=== PATIENT | female | born 1990 | race Caucasian/White ===

== ENCOUNTER 2016-09-24 08:30 | Emergency (ER) | payer BC ==
[~2016-09-24] VITALS: Ht 154.9 cm; Wt 72.5 kg
[~2016-09-24 08:30] MED LIST: ALBU8.5H3 INH; CIPR500T4 PO; NAPR-260 PO; PRED50TA PO
[2016-09-24 08:37] VITALS: Ht 154.9 cm; Wt 72.5 kg
[2016-09-24] MEDS ORDERED: SOD CHLORIDE 0.9% 1,000 ML IV STA (08:50)
[2016-09-24] MEDS ORDERED: KETOROLAC 30 MG INJ IV STA (08:50)
[2016-09-24 09:32] LABS: ADD SCAN DIFF NO
[2016-09-24 09:37] LABS: BASOPHIL # 0.1 10^3/ul (0.0-0.1); BASOPHILS % 0.5 % (0.0-2.0); EOSINOPHILS # 0.1 10^3/ul (0.0-0.5); EOSINOPHILS % 1.5 % (0.0-7.0); HEMATOCRIT 46.1 % (37.0-47.0); HEMOGLOBIN 15.7 g/dl (12.0-16.0); LYMPHOCYTES % 31.4 % (15.0-51.0); MEAN CORPUSCULAR HEMOGLOBIN 30.7 pg (29.0-33.0); MEAN CORPUSCULAR HGB CONC 34.1 g/dl (32.0-37.0); MEAN CORPUSCULAR VOLUME 90.2 fl (82.0-101.0); MEAN PLATELET VOLUME 10.8 fl (7.4-10.4); MONOCYTE # 0.6 10^3/ul (0.3-0.9); MONOCYTES % 6.4 % (0.0-11.0); NEUTROPHIL # 5.6 10^3/ul (1.6-7.5); NEUTROPHILS % 59.8 % (39.0-77.0); PLATELET COUNT 300 10^3/UL (140-415); RED BLOOD COUNT 5.11 10^6/ul (4.20-5.40); RED CELL DISTRIBUTION WIDTH 12.1 % (11.5-14.5); WHITE BLOOD COUNT 9.4 10^3/ul (4.8-10.8)
[2016-09-24 09:53] LABS: ALBUMIN 5.1 g/dl (3.3-4.9); ALBUMIN/GLOBULIN RATIO 1.82; BILIRUBIN,INDIRECT 1.3 mg/dl (0-1.1); BILIRUBIN,TOTAL 1.3 mg/dl (0.2-1.3); CALCIUM 9.6 mg/dl (8.4-10.2); CREATININE 0.8 mg/dl (0.44-1.00); POTASSIUM 3.9 mmol/L (3.5-5.1); TOTAL PROTEIN 7.9 g/dl (6.1-8.1)
[2016-09-24] MEDS ORDERED: morphine 4 MG/ML VIAL IV STA (10:05)
[2016-09-24] MEDS ORDERED: ONDANSETRON 4 MG INJ IV STA (10:05)
--- NOTE | 2016-09-24 10:09 | RADRPT ---
PROCEDURE: US Pelvis CLINICAL INDICATION: pelvic pain TECHNIQUE: Multiple sonographic images of the pelvis were obtained utilizing a transabdominal and endovaginal technique. The images were reviewed on a PACS workstation. COMPARISON: Pelvic ultrasound from 11/30/2015 LMP: 09/06/2016 FINDINGS: The uterus is retroverted and measures 6.3 x 3.5 x 4.6 cm. The endometrial echo complex measures 9 mm in thickness. No discrete lesion is seen. The right ovary measures 2.9 x 2.1 x 2.3 cm. The left ovary measures 3.4 x 1.9 x 2.5 cm. There is no rmal vascular flow in both ovaries. No significant ovarian lesions are seen. This is mild pelvic free fluid. IMPRESSION: Unremarkable pelvic ultrasound, as above. RPTAT: EE Physician Irvin Date Time Electronically viewed and signed by Physician Irvin on 09/24/2016 10:09 /
[2016-09-24 10:21] LABS: ADD UMIC YES; UR ASCORBIC ACID NEGATIVE (NEGATIVE); UR BACTERIA FEW /HPF (NONE SEEN); UR BILIRUBIN (Dip) NEGATIVE (NEGATIVE); UR BLOOD (Dip) 3+ mg/dL (NEGATIVE); UR CLARITY CLOUDY (CLEAR); UR COLOR YELLOW (YELLOW); UR GLUCOSE (Dip) NEGATIVE (NEGATIVE); UR KETONES (Dip) NEGATIVE (NEGATIVE); UR LEUKOCYTE ESTERASE (Dip) 1+ Leu/ul (NEGATIVE); UR MUCUS FEW /HPF (NONE SEEN); UR NITRITE (Dip) NEGATIVE (NEGATIVE); UR RBC > 182 /HPF (0-5); UR TOTAL PROTEIN (Dip) 1+ mg/dl (NEGATIVE); UR UROBILINOGEN (Dip) NEGATIVE (NEGATIVE)
--- NOTE | 2016-09-24 11:14 | RADRPT ---
PROCEDURE: CT Abdomen and pelvis without contrast. CLINICAL INDICATION: Low pelvic pain. History of kidney stones TECHNIQUE: CT scan of the abdomen and pelvis without contrast was performed on a multidetector hig h-resolution CT scan. . Coronal and sagittal reformatted images were obtained from the axial [facility] e images. Standard CT scan of the abdomen pelvis without contrast protocols were performed. The total exam CTDI equals 16.46 mGy and the total exam DLP equals 1007.92 mGy-cm. One or more of the following dose reduction techniques were used: - Automated exposure control. - Adjustment of the mA and/or kV according to patient size. Use of iterative reconstruction technique. COMPARISON: CT abdomen pelvis without contrast 11/30/2015 FINDINGS: There is a 3 mm distal right ureteral calcified calculus just proximal to the right ureteral vesicle junction resulting in moderate right hydroureter and hydronephrosis. No evidence of left hydroneph rosis or hydroureter. Again noted are multiple nonobstructing tiny left renal calcified calculi and a tiny non-obstructing inferior right renal calcified calculus. No evidence of intra renal masses bilaterally. The urinary bladder is partially contracted. Urinary bladder wall thickening is likel y related to the contracted state this cystitis cannot be excluded. There is trace fluid in the cul-de-sac. The uterus is anteverted but otherwise unremarkable. No ad nexal masses. No other evidence of abdominal free fluid. Negative for abdominal free air, abscesse s or lymphadenopathy. The gallbladder is unremarkable without biliary ductal dilation. The liver spleen pancreas and adre nal glands are unremarkable. The stomach, small bowel and large bowel are unremarkable. The appendix is unremarkable. The aorta is unremarkable. Lung bases are unremarkable. The osseous structures are unremarkable. Lower thoracic abdominal pelvic short are unremarkable. IMPRESSION: 1. 3 mm distal right ureteral calcified calculus resulting in moderate right hydroureter and hydron ephrosis. 2. Additional bilateral nonobstructing renal calcified calculi as described above. No left obstruc tive uropathy. 3. Trace fluid in the cul-de-sac. Negative for intra-abdominal free air or abscesses. 4. Urinary bladder wall thickening likely related to lack of optimal distension cystitis cannot be excluded. RPTAT:AAJJ Denice Hahn Physician Date Time Electronically viewed and signed by Denice Hahn Physician on 09/24/2016 11:14 BM/
[2016-09-24] MEDS ORDERED: ONDA-43 PO (11:29)
[2016-09-24] MEDS ORDERED: IBUP-1542 PO (11:29)
[2016-09-24] MEDS ORDERED: HYDR-906 PO (11:30)
[2016-09-24] MEDS ORDERED: NITR-58 PO (11:36)
--- NOTE | 2016-09-24 14:29 | ERD ---
ER Documentation Chief Complaint Date/Time DATE: 09/24/16 TIME: 14:24 Chief Complaint has pelvic pain started with pressure now is more uncomfortable pain HPI This is a 26-year-old female presents to the ER with right-sided pelvic pain. Patient states that pelvic pain radiates to the right side of her groin and has gotten more severe over the last few days. Patient does admit to some urinary frequency and dysuria however denies hematuria. She denies nausea vomiting or diarrhea. She has a history of kidney stones and feels that this is the same problem. She denies any vaginal discharge. ROS 12 point review of systems was done, all negative except per HPI. Medications Home Meds Active Scripts Nitrofurantoin Monohyd Macrocr* (Macrobid*) 100 Mg Capsr, 100 MG PO BID for 7 Days, CAP Prov:CHRISTI BOWSER 09/24/16 Hydrocodone/Acetaminophen ([place] 5-325 Tablet) 1 Each Tablet, 1 TAB PO Q6H Y for PAIN, #15 TAB Prov:CHRISTI BOWSER 09/24/16 Ondansetron Hcl* (Zofran*) 4 Mg Tab, 4 MG PO Q4H Y for NAUSEA AND OR VOMITING for 5 Days, TAB Prov:CHRISTI BOWSER 09/24/16 Ibuprofen* (Motrin*) 600 Mg Tab, 600 MG PO Q6, #30 TAB Prov:CHRISTI BOWSER 09/24/16 Naproxen* (Naprosyn*) 500 Mg Tablet, 500 MG PO BID Y for PAIN AND/OR INFLAMMATION, #30 TAB Prov:DESMOND RODRIGEZ PA-C 11/30/15 Ciprofloxacin Hcl* (Ciprofloxacin Hcl*) 500 Mg Tablet, 500 MG PO BID for 10 Days , TAB Prov:DESMOND RODRIGEZ PA-C 11/30/15 Albuterol Sulfate* (Proair HFA*) 8.5 Gm Hfa.aer.ad, 2 PUFF INH Q4, #1 INHALER Prov:LIO JUAREZ PA-C 11/05/15 Prednisone* (Prednisone*) 50 Mg Tablet, 50 MG PO DAILY, #5 TAB Prov:LIO JUAREZ PA-C 11/05/15 Allergies Allergies: Coded Allergies: No Known Allergy (Unverified , 8/26/16) PMhx/Soc History of Surgery: No Anesthesia Reaction: No Hx Neurological Disorder: No Hx Respiratory Disorders: No Hx Cardiac Disorders: No Hx Psychiatric Problems: No Hx Miscellaneous Medical Probl: No Hx Alcohol Use: No Hx Substance Use: No Hx Tobacco Use: No Physical Exam Vitals Vital Signs Date Time Temp Pulse Resp B/P Pulse Ox O2 Delivery O2 Flow Rate FiO2 09/24/16 08:37 98.4 89 18 131/85 97 Physical Exam GENERAL: The patient is well developed and appropriate for usual state of health , in no apparent distress. HEENT: Atraumatic. CHEST: Clear to auscultation bilaterally. There are no rales, wheezes or rhonchi. HEART: Regular rate and rhythm. No murmurs, clicks, rubs or gallops. ABDOMEN: Soft, nontender and nondistended. Good bowel sounds. No rebound or guarding. No gross peritonitis. No gross organomegaly or masses. No Sy sign or McBurney point tenderness. BACK: No midline or flank tenderness. NEURO: Alert and oriented SKIN: The skin is warm and dry. Result Diagram: 09/24/1691709/24/1618 Results 24 hrs Laboratory Tests Test 09/24/16 09:00 09/24/16 09:18 Urine Color YELLOW Urine Clarity CLOUDY Urine pH 9.0 Urine Specific [place] 1.020 Urine Ketones NEGATIVEmg/dL Urine Nitrite NEGATIVEmg/dL Urine Bilirubin NEGATIVEmg/dL Urine Urobilinogen NEGATIVEmg/dL Urine Leukocyte Esterase 1+Katie/ul Urine Microscopic RBC > 182/HPF Urine Microscopic WBC 36/HPF Urine Bacteria FEW/HPF Urine Mucus FEW/HPF Urine Hemoglobin 3+mg/dL Urine Glucose NEGATIVEmg/dL Urine Total Protein 1+mg/dl White Blood Count 9.410^3/ul Red Blood Count 5.1110^6/ul Hemoglobin 15.7g/dl Hematocrit 46.1% Mean Corpuscular Volume 90.2fl Mean Corpuscular Hemoglobin 30.7pg Mean Corpuscular Hemoglobin Concent 34.1g/dl Red Cell Distribution Width 12.1% Platelet Count 26722^3/UL Mean Platelet Volume 10.8fl Neutrophils % 59.8% Lymphocytes % 31.4% Monocytes % 6.4% Eosinophils % 1.5% Basophils % 0.5% Nucleated Red Blood Cells % 0.0/100WBC Neutrophils # 5.610^3/ul Lymphocytes # 3.010^3/ul Monocytes # 0.610^3/ul Eosinophils # 0.110^3/ul Basophils # 0.110^3/ul Nucleated Red Blood Cells # 0.010^3/ul Sodium Level 142mmol/L Potassium Level 3.9mmol/L Chloride Level 104mmol/L Carbon Dioxide Level 26mmol/L Anion Gap 16 Blood Urea Nitrogen 8mg/dl Creatinine 0.80mg/dl Glucose Level 94mg/dl Calcium Level 9.6mg/dl Total Bilirubin 1.3mg/dl Direct Bilirubin 0.00mg/dl Indirect Bilirubin 1.3mg/dl Aspartate Amino Transf (AST/SGOT) 34IU/L Alanine Aminotransferase (ALT/SGPT) 47IU/L Alkaline Phosphatase 78IU/L Total Protein 7.9g/dl Albumin 5.1g/dl Globulin 2.80g/dl Albumin/Globulin Ratio 1.82 Lipase 65U/L Current Medications Medications (Trade) Dose Ordered Sig/Riddhi Route PRN Reason Start Time Stop Time Status Last Admin Dose Admin Sodium Chloride (NS) 1,000 ml @ 1,000 mls/hr Q1H STAT IV 09/24/16 08:50 09/24/16 09:49 DC 09/24/16 09:17 Ketorolac Tromethamine (Toradol) 30 mg ONCE STAT IV 09/24/16 08:50 09/24/16 08:52 DC 09/24/16 09:17 Morphine Sulfate (morphine) 4 mg ONCE STAT IV 09/24/16 10:05 09/24/16 10:06 DC 09/24/16 10:16 Ondansetron HCl (Zofran Inj) 4 mg ONCE STAT IV 09/24/16 10:05 09/24/16 10:06 DC 09/24/16 10:16 Procedures/MDM Labs were reviewed- no evidence of leukocytosis, anemia, or electrolyte abnormalities. Differential diagnosis includes but is not limited to appendicitis, hernia, UTI , constipation, ectopic , ovarian torsion, PID, Mittelschmerz, fibroid. , nephrolithiasis, septic stone, obstructive stone. This is a 26-year-old female presents to the ER with right-sided pelvic pain, patient does have a kidney stone. Suspicion for ovarian torsion is low. Patient afebrile and well- appearing. Stone is responding irritable will likely pass. Patient will be sent home with kesha Blair Norco, for the UTI on the ER. Patient is stable for outpatient neurology follow-up with her primary care doctor within 1-2 days return to ER sooner symptoms worsen. My medical decision making was shared with the patient she understands and agrees with plan. Departure Diagnosis: Primary Impression: Kidney stone Condition: Stable Patient Instructions: Kidney Stone W/ Colic Additional Instructions: Call your primary care doctor TOMORROW for an appointment during the next 1-2 days.See the doctor sooner or return here if your condition worsens before your appointment time. CHRISTI BOWSER Sep 24, 2016 14:29
== END 2016-09-24 11:41 | disposition home or self-care (01) ==
LOC: FTE 08:30
DX: N20.0 Calculus of kidney (principal)
CPT/HCPCS: 36415; 74176; 76830; 76856; 80053; 81001; 83690; 85025; 96374; 96375; 99285; J1885; J2270; J2405; J7030

== ENCOUNTER 2016-10-17 10:26 | Emergency (ER) | payer BC ==
[~2016-10-17] VITALS: Ht 154.9 cm; Wt 72.5 kg
[~2016-10-17 10:26] MED LIST changes: +HYDR-906 PO; +IBUP-1542 PO; +NITR-58 PO; +ONDA-43 PO
[2016-10-17 10:33] VITALS: Ht 154.9 cm; Wt 72.5 kg
[2016-10-17] MEDS ORDERED: SOD CHLORIDE 0.9% 1,000 ML IV STA (10:51)
[2016-10-17] MEDS ORDERED: KETOROLAC 30 MG INJ IV STA (10:51)
[2016-10-17] MEDS ORDERED: ONDANSETRON 4 MG INJ IV STA (10:51)
--- NOTE | 2016-10-17 11:06 | ERD ---
ER Documentation Chief Complaint Date/Time DATE: 10/17/16 TIME: 11:04 Chief Complaint r.side flank pain x 5 days HX of kidney stones HPI 26-year-old female with history of kidney stones comes in with right-sided flank pain for the past 5 days. She states that her pain went away from the previous kidney stones that she presented with on September 25 states that she passed small stones in the urine. She has recurring kidney stones, the last time she had it was the previous year as well. It is sharp, radiating to the right lower quadrant, moderate to severe. She states that she tried taking [place] that was prescribed previously and that seemed to help her. She has not had any fevers or chills or vomiting. ROS All systems reviewed and are negative except as per history of present illness. Medications Home Meds Active Scripts Naproxen* (Naprosyn*) 500 Mg Tablet, 500 MG PO BID Y for PAIN AND/OR INFLAMMATION, #30 TAB Prov:SHREE CHANG PA-C 10/17/16 Tamsulosin Hcl* (Flomax*) 0.4 Mg Cap.er.24h, 0.4 MG PO BID, #30 CAP Prov:SHREE CHANG PA-C 10/17/16 Ciprofloxacin Hcl* (Ciprofloxacin Hcl*) 500 Mg Tablet, 500 MG PO BID for 14 Days , TAB Prov:SHREE CHANG PA-C 10/17/16 Nitrofurantoin Monohyd Macrocr* (Macrobid*) 100 Mg Capsr, 100 MG PO BID for 7 Days, CAP Prov:CHRISTI BOWSER 09/24/16 Hydrocodone/Acetaminophen ([place] 5-325 Tablet) 1 Each Tablet, 1 TAB PO Q6H Y for PAIN, #15 TAB Prov:CHRISTI BOWSER 09/24/16 Ondansetron Hcl* (Zofran*) 4 Mg Tab, 4 MG PO Q4H Y for NAUSEA AND OR VOMITING for 5 Days, TAB Prov:CHRISTI BOWSER 09/24/16 Ibuprofen* (Motrin*) 600 Mg Tab, 600 MG PO Q6, #30 TAB Prov:CHRISTI BOWSER 09/24/16 Naproxen* (Naprosyn*) 500 Mg Tablet, 500 MG PO BID Y for PAIN AND/OR INFLAMMATION, #30 TAB Prov:DESMOND RODRIGEZ PA-C 11/30/15 Ciprofloxacin Hcl* (Ciprofloxacin Hcl*) 500 Mg Tablet, 500 MG PO BID for 10 Days , TAB Prov:DESMOND RODRIGEZTanmay HERRERA 11/30/15 Albuterol Sulfate* (Proair HFA*) 8.5 Gm Hfa.aer.ad, 2 PUFF INH Q4, #1 INHALER Prov:LIO JUAREZ SHARON 11/05/15 Prednisone* (Prednisone*) 50 Mg Tablet, 50 MG PO DAILY, #5 TAB Prov:LIO JUAREZ SHARON 11/05/15 Allergies Allergies: Coded Allergies: No Known Allergy (Unverified , 10/17/16) PMhx/Soc History of Surgery: No Anesthesia Reaction: No Hx Neurological Disorder: No Hx Respiratory Disorders: No Hx Cardiac Disorders: No Hx Psychiatric Problems: No Hx Miscellaneous Medical Probl: Yes (Kidney stones) Hx Alcohol Use: No Hx Substance Use: No Hx Tobacco Use: No Smoking Status: Never smoker Physical Exam Vitals Vital Signs Date Time Temp Pulse Resp B/P Pulse Ox O2 Delivery O2 Flow Rate FiO2 10/17/16 10:33 98.0 85 20 121/81 100 Physical Exam General: Well-developed, well-nourished. The patient appears in no acute distress. HEENT: Head is normocephalic, atraumatic. No scleral icterus. Neck: Supple. Nontender. Lungs: Clear to auscultation. Normal air movement. Heart: Regular rate and rhythm. S1 and S2 are normal. No murmurs, gallops, or rubs. Abdomen: Soft, nontender, nondistended. Bowel sounds are normoactive. Extremities: No clubbing or cyanosis. Normal pulses. Moving extremities x 4. No weakness. Neurologic: Alert and oriented 3. No focal deficits. Skin: Normal turgor. No rash or lesions. Result Diagram: 10/17/16 1106 10/17/16 1106 Results 24 hrs Laboratory Tests Test 10/17/16 11:06 White Blood Count 6.510^3/ul Red Blood Count 4.7910^6/ul Hemoglobin 14.8g/dl Hematocrit 43.0% Mean Corpuscular Volume 89.8fl Mean Corpuscular Hemoglobin 30.9pg Mean Corpuscular Hemoglobin Concent 34.4g/dl Red Cell Distribution Width 12.0% Platelet Count 38722^3/UL Mean Platelet Volume 10.9fl Neutrophils % 48.3% Lymphocytes % 40.4% Monocytes % 8.1% Eosinophils % 2.4% Basophils % 0.6% Nucleated Red Blood Cells % 0.0/100WBC Neutrophils # 3.210^3/ul Lymphocytes # 2.610^3/ul Monocytes # 0.510^3/ul Eosinophils # 0.210^3/ul Basophils # 0.010^3/ul Nucleated Red Blood Cells # 0.010^3/ul Urine Color YELLOW Urine Clarity SLIGHTLY CLOUDY Urine pH 9.0 Urine Specific [place] 1.016 Urine Ketones NEGATIVEmg/dL Urine Nitrite NEGATIVEmg/dL Urine Bilirubin NEGATIVEmg/dL Urine Urobilinogen NEGATIVEmg/dL Urine Leukocyte Esterase 1+Katie/ul Urine Microscopic RBC 4/HPF Urine Microscopic WBC 8/HPF Urine Squamous Epithelial Cells FEW/HPF Urine Bacteria FEW/HPF Urine Hemoglobin NEGATIVEmg/dL Urine Glucose NEGATIVEmg/dL Urine Total Protein 1+mg/dl Sodium Level 139mmol/L Potassium Level 3.7mmol/L Chloride Level 104mmol/L Carbon Dioxide Level 26mmol/L Anion Gap 13 Blood Urea Nitrogen 9mg/dl Creatinine 0.80mg/dl Glucose Level 87mg/dl Calcium Level 9.8mg/dl Total Bilirubin 2.0mg/dl Direct Bilirubin 0.00mg/dl Indirect Bilirubin 2.0mg/dl Aspartate Amino Transf (AST/SGOT) 31IU/L Alanine Aminotransferase (ALT/SGPT) 39IU/L Alkaline Phosphatase 71IU/L Total Protein 8.1g/dl Albumin 5.3g/dl Globulin 2.80g/dl Albumin/Globulin Ratio 1.89 Lipase 75U/L Current Medications Medications (Trade) Dose Ordered Sig/Riddhi Route PRN Reason Start Time Stop Time Status Last Admin Dose Admin Sodium Chloride (NS) 1,000 ml @ 1,000 mls/hr Q1H STAT IV 10/17/16 10:51 10/17/16 11:50 DC 10/17/16 11:13 Ondansetron HCl (Zofran Inj) 4 mg ONCE STAT IV 10/17/16 10:51 10/17/16 10:52 DC 10/17/16 11:13 Ketorolac Tromethamine (Toradol) 30 mg ONCE STAT IV 10/17/16 10:51 10/17/16 10:53 DC 10/17/16 11:13 Tamsulosin HCl (Flomax) 0.4 mg ONCE ONCE PO 10/17/16 11:30 10/17/16 11:31 DC 10/17/16 11:30 PROCEDURE: CT abdomen and pelvis without contrast and with 3-D reconstructions CLINICAL INDICATION: Right flank, rlq pain w/ a history of stones TECHNIQUE: CT scan of the abdomen and pelvis without contrast was performed on a multislice CT scanner. 3-D sagittal and coronal reformatted images were obtained from the axial source images. DLP 632.84 mGycm CTDIvol 11.12 mGy One or more of the following dose reduction techniques were used: - Automated exposure control. - Adjustment of the mA and/or kV according to patient size. - Use of iterative reconstruction technique. COMPARISON: CT abdomen/pelvis from 09/24/2016 FINDINGS: The visualized lung bases are unremarkable. The liver is homogenous in attenuation. There are no focal liver lesions. There is no intrahepatic or extrahepatic biliary ductal dilatation. The gallbladder is within normal limits. The spleen, pancreas, and adrenal glands are within normal limits. A 3 mm calculus is identified at the right ureterovesicular junction which has minimally progressed distally since the prior CT study from 09/24/2016 where it was in the most distal aspect of the right ureter. There is stable mild right hydronephrosis and hydroureter. A punctate nonobstructive right lower pole renal calculus is again identified. At least 2 punctate nonobstructive left renal calculi are identified. There is no left hydronephrosis. There are no dilated or thickened loops of bowel. The appendix is within normal limits. The aorta is within normal limits. There are no enlarged mesenteric, periaortic , or retroperitoneal lymph nodes. The bladder is within normal limits. There is no free air. There is no free fluid. There are no enlarged intrapelvic or inguinal lymph nodes. Osseous and soft tissue structures are unremarkable. IMPRESSION: 3 mm right ureterovesicular junction stone which has minimally progressed distally since the prior CT study from 09/24/2016. There is stable mild right hydronephrosis and hydroureter. Consider nephrostomy tube placement for decompression. Punctate nonobstructive bilateral renal calculi are identified. There is no left hydronephrosis. Normal appendix. RPTAT: EE Physician Irvin Date Time Electronically viewed and signed by Alfred Cha Physician on 10/17/2016 12:00 Procedures/MDM ED course: Patient had an IV line established, she was given Toradol 30 mg, fluid bolus of normal saline 1 L. Blood and urine were obtained. 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 She states that she is not able to urinate, she believes it could be a new stone, therefore another CT will be ordered at this time. Medical decision making: This is 26-year-old female presents with right-sided flank pain with a history of recurrent kidney stones, patient has a descending right VJ stone, with stable hydronephrosis. Labs are normal, normal renal function, no white count, no fever associated. She has 8 white blood cells in the urine analysis was as venous epithelial cells is likely due to a dirty catch with patient will be treated given her presentation of kidney stone with Cipro. This was discussed with my attending physician who agrees with workup, disposition that patient may follow-up outpatient. She has an appointment with her primary care doctor on Thursday which is 3 days from now, I have asked her to speak with them for a referral to see a urologist given her recurrent kidney stones. Departure Diagnosis: Primary Impression: Flank pain Condition: SHREE Wood PA-C Oct 17, 2016 11:06
[2016-10-17 11:18] LABS: ADD SCAN DIFF NO
[2016-10-17 11:25] LABS: BASOPHILS % 0.6 % (0.0-2.0); EOSINOPHILS # 0.2 10^3/ul (0.0-0.5); EOSINOPHILS % 2.4 % (0.0-7.0); HEMOGLOBIN 14.8 g/dl (12.0-16.0); LYMPHOCYTES # 2.6 10^3/ul (0.8-2.9); LYMPHOCYTES % 40.4 % (15.0-51.0); MEAN CORPUSCULAR HEMOGLOBIN 30.9 pg (29.0-33.0); MEAN CORPUSCULAR HGB CONC 34.4 g/dl (32.0-37.0); MEAN CORPUSCULAR VOLUME 89.8 fl (82.0-101.0); MEAN PLATELET VOLUME 10.9 fl (7.4-10.4); MONOCYTE # 0.5 10^3/ul (0.3-0.9); MONOCYTES % 8.1 % (0.0-11.0); NEUTROPHIL # 3.2 10^3/ul (1.6-7.5); NEUTROPHILS % 48.3 % (39.0-77.0); PLATELET COUNT 305 10^3/UL (140-415); RED BLOOD COUNT 4.79 10^6/ul (4.20-5.40); WHITE BLOOD COUNT 6.5 10^3/ul (4.8-10.8)
[2016-10-17] MEDS ORDERED: TAMSULOSIN (SR) 0.4 MG CAP PO ONE (11:30)
[2016-10-17 11:42] LABS: ALBUMIN 5.3 g/dl (3.3-4.9); ALBUMIN/GLOBULIN RATIO 1.89; CALCIUM 9.8 mg/dl (8.4-10.2); CREATININE 0.8 mg/dl (0.44-1.00); POTASSIUM 3.7 mmol/L (3.5-5.1); TOTAL PROTEIN 8.1 g/dl (6.1-8.1)
[2016-10-17 11:44] LABS: ADD UMIC YES; UR ASCORBIC ACID NEGATIVE (NEGATIVE); UR BACTERIA FEW /HPF (NONE SEEN); UR BILIRUBIN (Dip) NEGATIVE (NEGATIVE); UR BLOOD (Dip) NEGATIVE (NEGATIVE); UR CLARITY SLIGHTLY CLOUDY (CLEAR); UR COLOR YELLOW (YELLOW); UR GLUCOSE (Dip) NEGATIVE (NEGATIVE); UR KETONES (Dip) NEGATIVE (NEGATIVE); UR LEUKOCYTE ESTERASE (Dip) 1+ Leu/ul (NEGATIVE); UR NITRITE (Dip) NEGATIVE (NEGATIVE); UR RBC 4 /HPF (0-5); UR SPECIFIC GRAVITY (Dip) 1.016 (1.003-1.030); UR SQUAMOUS EPITHELIAL CELL FEW /HPF (FEW); UR TOTAL PROTEIN (Dip) 1+ mg/dl (NEGATIVE); UR UROBILINOGEN (Dip) NEGATIVE (NEGATIVE)
--- NOTE | 2016-10-17 12:00 | RADRPT ---
PROCEDURE: CT abdomen and pelvis without contrast and with 3-D reconstructions CLINICAL INDICATION: Right flank, rlq pain w/ a history of stones TECHNIQUE: CT scan of the abdomen and pelvis without contrast was performed on a multislice CT [facility]. 3-D sagittal and coronal reformatted images were obtained from the axial source images. DLP 632.84 mGycm CTDIvol 11.12 mGy One or more of the following dose reduction techniques were used: - Automated exposure control. - Adjustment of the mA and/or kV according to patient size. - Use of iterative reconstruction technique. COMPARISON: CT abdomen/pelvis from 09/24/2016 FINDINGS: The visualized lung bases are unremarkable. The liver is homogenous in attenuation. There are no focal liver lesions. There is no intrahepatic or extrahepatic biliary ductal dilatation. The gallbladder is within normal limits. The spleen, pancreas, and adrenal glands are within normal limits. A 3 mm calculus is identified at the right ureterovesicular junction which has minimally progressed distally since the prior CT study from 09/24/2016 where it was in the most distal aspect of the righ t ureter. There is stable mild right hydronephrosis and hydroureter. A punctate nonobstructive rig ht lower pole renal calculus is again identified. At least 2 punctate nonobstructive left renal jeffrey culi are identified. There is no left hydronephrosis. There are no dilated or thickened loops of bowel. The appendix is within normal limits. The aorta is within normal limits. There are no enlarged mesenteric, periaortic, or retroperitoneal lymph nodes. The bladder is within normal limits. There is no free air. There is no free fluid. There are no enlarged intrapelvic or inguinal lymph nodes. Osseous and soft tissue structures are unremarkable. IMPRESSION: 3 mm right ureterovesicular junction stone which has minimally progressed distally since the prior C T study from 09/24/2016. There is stable mild right hydronephrosis and hydroureter. Consider nephro stomy tube placement for decompression. Punctate nonobstructive bilateral renal calculi are identified. There is no left hydronephrosis. Normal appendix. RPTAT: EE Alfred Cha Physician Date Time Electronically viewed and signed by Alfred Cha Physician on 10/17/2016 12:00 RA/
[2016-10-17] MEDS ORDERED: NAPR-260 PO (12:19)
[2016-10-17] MEDS ORDERED: TAMS-14 PO (12:19)
[2016-10-17] MEDS ORDERED: CIPR500T4 PO (12:19)
[2016-10-17 12:40] VITALS: BP 119/58; PULSE 74; RESP 20
== END 2016-10-17 12:43 | disposition home or self-care (01) ==
LOC: FTE 10:26
DX: R10.9 Unspecified abdominal pain (principal)
CPT/HCPCS: 36415; 74176; 80053; 81001; 83690; 85025; 96374; 96375; 99285; J1885; J2405; J7030